=== PATIENT | female | born 1985 | race Caucasian/White ===

== ENCOUNTER 2023-04-16 13:54 | Emergency (ER) | payer OTHER, SELFPAY ==
[2023-04-16 14:03] VITALS: BP 104/65
[2023-04-16 15:09] LABS: D-Dimer 0.84 ug/mlFEU (0.00-0.50)
--- NOTE | 2023-04-16 16:12 | ED.GENMED ---
History of Present Illness
General
Chief Complaint: Breathing Problem
Source: patient
Exam Limitations: none
Time Seen by Provider: 04/16/23 16:06
Nursing documentation reviewed up to this point in time: agreed with
Travel History
Have you had any contact with someone who has COVID-19?: No
Do you have any symptoms of coronavirus? Fever > 100 degrees, chills, cough, shortness of breath, sore throat, loss of taste or smell, muscle aches, or headache?: No
History of Present Illness
History of Present Illness:
37-year-old female, 34 weeks presents from [facility] Garcia[facility] office having had slowly increasing worsening of her intermittent shortness of breath in the past 2 weeks, most recently even at rest not like her typical shortness of breath
when she goes up a flight of stairs 34 weeks . She has had intermittent charley horses in her calves over the past couple of months, denies calf pain at this time. She denies SOB at this time. She denies chest pain.
Past History
Past History
ED Past Medical History: None
ED Past Surgical History: None
Social History
Tobacco: Former smoker
Alcohol: None
Personal:
Living: with family
Employment: Employed
Review of Systems
Review of Systems
Allergies reviewed?: Yes
All Other Systems: ROS reviewed and negative except as documented in HPI and ROS
Constitutional: Denies fever or fatigue
Respiratory: Reports trouble breathing (Shortness of breath at times, mainly with exertion, sometimes at rest)
Cardiac: Denies chest pain, diaphoresis or palpitations
ABD/GI: Denies abdominal pain or nausea
: Denies dysuria or difficulty voiding
Musculoskeletal: Reports no symptoms
Skin: Reports no symptoms
Neurological: Reports no symptoms
Phy Exam
Physical Exam
Physical Exam:
GENERAL: No acute distress. A&Ox3.
CONSTITUTIONAL: Afebrile.
RESPIRATORY: Regular respirations, nonlabored, lungs clear.
CARDIOVASCULAR: Regular rate and rhythm, no murmurs, no rubs.
GI: Soft, consistent with a 34-week , nontender, normal BS
MUSCULOSKELETAL: Moves with ease. Well perfused.
SKIN: Warm, dry, pink
PSYCH: Normal mood and affect. Well kept, interactive and appropriate
NEUROLOGIC: Awake, alert and oriented. No focal neurological deficits
Course
Orders/Labs/Results
Orders:
Orders
04/16/23 14:12
D-Dimer Urgent
Abnormal Lab Results
04/16/23
14:12
D-Dimer 0.84 H ug/mlFEU
(0.00-0.50)
Vital Signs
Initial and Last Documented VS:
Initial Vital Signs
Temp Pulse Resp BP Pulse Ox
98.2 F 89 16 104/65 98
04/16/23 14:03 04/16/23 14:03 04/16/23 14:03 04/16/23 14:03 04/16/23 14:03
Last Documented Vital Signs
Temp Pulse Resp BP Pulse Ox
98.2 F 89 16 104/65 100
04/16/23 14:03 04/16/23 14:03 04/16/23 14:03 04/16/23 14:03 04/16/23 16:32
MDM/Problems Addressed
Differential Diagnosis Includes:
elevated dimer physiologic with , PE
MDM/Problems Addressed:
37-year-old female, 34 weeks presents from [facility] Garcia's office having had slowly increasing worsening of her intermittent shortness of breath in the past 2 weeks, most recently even at rest not like her typical shortness of breath
when she goes up a flight of stairs 34 weeks . She has had intermittent charley horses in her calves over the past couple of months, denies calf pain at this time. She denies SOB at this time. She denies chest pain.
NAD
D dimer 0.84
Discussed risk vs benefit of CT scan for PE study. Dr. Jose cheng texted earlier that she is 'ok with radiation risk.'
Dr. Garcia off duty, forwarded message to Dr. Palomo.
Dr. Naylor got back to me and states she has no problem with the radiation risk
The patient discussed situation with her , she has decided that she does not want the PE study.
Although she has intermittent charley horses, there is no calf pain redness or swelling, no hypoxemia, no tachycardia, no chest pain, no shortness of breath at this time, low suspicion for PE. The mild elevation in the dimer most likely physiologic
with
Reviewed with and patient understands symptoms requiring immediate return.
*Critical Care Note
Total Time (30-74mins, 75-104mins- exclusive of procedures): Not Applicable
ED Attending Note
-
Portions of this chart may have been created with voice recognition software.� Occasional wrong word or��sound alike� substitutions may have occurred due to the inherent limitations of voice recognition software.
Discharge Plan
Departure
Patient Disposition: Home (Routine Discharge)
Date of Disposition: 04/16/23
Time of Disposition: 16:50
Patient with high blood pressure during this ER visit?: No
Condition: Good
Discharge Problem:
Increasing shortness of breath
Prescriptions:
No Action
No Current Medications
0
Referrals:
Samuel Garcia MD [Active] - As needed
NONE,* [Active] -
Activity Restrictions/Additional Instructions:
As we discussed, your D-dimer is mildly elevated, this can occur with .
You have declined the CAT scan for PE or clot in the lung study, so just be aware of the symptoms and return here immediately if they occur: Chest pain, shortness of breath, fast heart rate, feeling faint, or feeling worse in any way.
Also be aware of signs of a deep vein clot in the legs: Increasing pain, swelling, warmth, redness of the leg
If any of these occur, return here immediately
Interventions
Interventions:
*Risk Screen - Suicide Last Done: 04/16/23 16:26
*General Assessment Last Done: 04/16/23 16:26
*Neglect/Abuse Screening Last Done: 04/16/23 16:26
ED- Fall Risk Assessment Last Done: 04/16/23 16:26
*ED COVID-19 Vaccine History Last Done: 04/16/23 16:26
*Nursing Disposition Last Done: 04/16/23 16:51
ED- Cardiac Assessment Last Done: 04/16/23 16:26
ED- Pulmonary Assessment Last Done: 04/16/23 16:26
Discharge Date and Time
Discharge Date/Time: 04/16/23 16:57
[2023-04-16 16:26] VITALS: BMI 26.7
== END 2023-04-16 16:57 | disposition home or self-care (01) ==
LOC: EMR 13:54
PROVIDERS: EMERGENCY PHYSICIAN Emergency Medicine; FAMILY PHYSICIAN Nurse Practitioner
DX: O26.893 Other specified pregnancy related conditions, third trimester (principal); Z3A.34 34 weeks gestation of pregnancy; R06.02 Shortness of breath; M62.831 Muscle spasm of calf; Z87.891 Personal history of nicotine dependence
CPT/HCPCS: 99284; 96372; 85379

== ENCOUNTER 2023-04-22 08:33 | Inpatient (IN) | payer OTHER, SELFPAY ==
[2023-04-22 08:44] VITALS: BP 118/51; BMI 28.4
[2023-04-22 10:35] LABS: % Basophils 0.6 % (0-2); % Eosinophils 0.7 % (0-6); % Immature Granulocytes 3.5 % (0-0.5); % Lymphocytes 20.1 % (20.5-51.1); % Monocytes 5.9 % (1.7-9.3); % Neutrophils 69.2 % (42.2-75.2); Absolute Basophils 0.1 10^3/uL (0-0.2); Absolute Eosinophils 0.1 10^3/uL (0-0.7); Absolute Immature Granulocytes 0.3 10^3/uL (0-0.05); Absolute Lymphocytes 1.8 10^3/uL (1.2-3.4); Absolute Monocytes 0.5 10^3/uL (0.1-0.6); Absolute Neutrophils 6.1 10^3/uL (1.4-6.5); Hematocrit 34.6 % (37.0-47.0); Hemoglobin 11.9 g/dL (12.0-16.0); Mean Corp Hgb Conc. 34.4 g/dL (33.0-37.0); Mean Corpuscular Hgb 32.2 pg (27.0-31.0); Mean Corpuscular Volume 93.5 fL (81.0-99.0); Mean Platelet Volume 9.2 fL (7.4-10.4); Nucleated Red Blood Cells % 0 %; Platelet Count 238 10^3/uL (130-400); Red Cell Dist. Width 13.2 % (11.5-14.5); White Blood Cell Count 8.8 10^3/uL (4.8-10.8)
[2023-04-22] MEDS: CELESTONE SOLUSPAN 2 MG IM (11:12)
[2023-04-22] MEDS: TUMS EX (EXTRA STRENGTH) CHEWABLE 2 TABLET PO (20:26)
[2023-04-23] MEDS: TUMS EX (EXTRA STRENGTH) CHEWABLE 2 TABLET PO ×2 (04:42→09:54)
[2023-04-23] MEDS: CELESTONE SOLUSPAN 2 MG IM (11:04)
== END 2023-04-23 11:25 | disposition home or self-care (01) | DRG 833 ==
LOC: LDRP 08:33
PROVIDERS: ADMITTING PHYSICIAN Obstetrics & Gynecology; CONSULT PHYSICIAN Pediatrics Neonatal-Perinatal Medicine
DX: O46.93 Antepartum hemorrhage, unspecified, third trimester (principal); Z3A.34 34 weeks gestation of pregnancy
CPT/HCPCS: 76816; 85025; 85460; 86850; 86900; 86901; 87070; 93976; G0378

== ENCOUNTER → 2023-06-03 06:51 | Outpatient (REF) | payer OTHER, SELFPAY | LOC: PNTC 06:51 | PROVIDERS: ATTENDING PHYSICIAN Obstetrics & Gynecology | DX: O48.0 Post-term pregnancy (principal) | CPT/HCPCS: 59025 ==

== ENCOUNTER 2023-06-04 17:24 | Observation (INO) | payer OTHER, SELFPAY ==
[2023-06-04 17:40] VITALS: BP 111/69; BMI 29.5
== END 2023-06-04 18:33 | disposition home or self-care (01) ==
LOC: LDRP 17:24
PROVIDERS: ADMITTING PHYSICIAN Obstetrics & Gynecology
DX: O36.8130 Decreased fetal movements, third trimester, not applicable or unspecified (principal); O48.0 Post-term pregnancy; Z3A.40 40 weeks gestation of pregnancy; O09.523 Supervision of elderly multigravida, third trimester
CPT/HCPCS: 76815; G0378

== ENCOUNTER 2023-06-08 10:31 | Inpatient (IN) | payer OTHER, SELFPAY ==
[2023-06-08 10:22] VITALS: BP 124/67; BMI 28.4
[2023-06-08] MEDS: LR 1000 IV ×2 (11:22→18:19)
[2023-06-08 11:32] LABS: % Basophils 0.4 % (0-2); % Eosinophils 0.8 % (0-6); % Immature Granulocytes 2.7 % (0-0.5); % Lymphocytes 20.7 % (20.5-51.1); % Monocytes 8.4 % (1.7-9.3); Absolute Eosinophils 0.1 10^3/uL (0-0.7); Absolute Immature Granulocytes 0.2 10^3/uL (0-0.05); Absolute Lymphocytes 1.9 10^3/uL (1.2-3.4); Absolute Monocytes 0.8 10^3/uL (0.1-0.6); Hematocrit 35.4 % (37.0-47.0); Hemoglobin 12.6 g/dL (12.0-16.0); Mean Corp Hgb Conc. 35.6 g/dL (33.0-37.0); Mean Corpuscular Hgb 33.3 pg (27.0-31.0); Mean Corpuscular Volume 93.7 fL (81.0-99.0); Mean Platelet Volume 9.2 fL (7.4-10.4); Nucleated Red Blood Cells % 0 %; Platelet Count 233 10^3/uL (130-400); Red Blood Cell Count 3.78 10^6/uL (4.20-5.40); Red Cell Dist. Width 13.4 % (11.5-14.5); White Blood Cell Count 8.9 10^3/uL (4.8-10.8)
[2023-06-08] MEDS: CYTOTEC 25 MICROGRAM VAG (13:16)
[2023-06-08] MEDS: CYTOTEC 50 MICROGRAM PO ×2 (16:08→20:08)
[2023-06-09] MEDS: PHENERGAN 50.5 MG IV (02:21)
[2023-06-09] MEDS: MORPHINE SULFATE 2 MG IV ×2 (02:21→23:12)
[2023-06-09] MEDS: CYTOTEC PO ×3 (04:11→10:43)
[2023-06-09] MEDS: PITOCIN 30 UNITS/NSS 500 ML IV (04:21)
[2023-06-09] MEDS: PHENERGAN 50.25 MG IV (23:11)
[2023-06-09] MEDS: LR 1000 IV ×2 (23:12→23:55)
[2023-06-10] MEDS: MORPHINE SULFATE 2 MG IV (07:11)
[2023-06-10] MEDS: PHENERGAN 50.25 MG IV (07:25)
[2023-06-10] MEDS: SUBLIMAZE 100 MCG EPIDURAL (09:41)
[2023-06-10] MEDS: FENTANYL/BUPIVACAINE 100 EPIDURAL (09:41)
[2023-06-10] MEDS: LR 1000 IV (13:23)
[2023-06-10] MEDS: ZITHROMAX INFUSION 250 IV (15:02)
[2023-06-10] MEDS: ANCEF 10 IV (15:02)
[2023-06-10] MEDS: TYLENOL 1000 MG PO (15:02)
[2023-06-10] MEDS: BICITRA 30 ML PO (15:02)
[2023-06-10 15:45] LABS: Cord ABG Comment CORD BLOOD
[2023-06-10 15:47] LABS: B.E. Cord ABG -1.5 mMOL/L; HCO3 Cord ABG 22.9 mmol/L; O2 Saturation % Cord ABG 67.6 %; PCO2 Cord ABG 37 mmHg; PO2 Cord ABG 33 mmHg
[2023-06-10 15:49] LABS: B.E. Cord ABG -1.5 mMOL/L; HCO3 Cord ABG 22.9 mmol/L; O2 Saturation % Cord ABG 67.9 %; PCO2 Cord ABG 37 mmHg; PO2 Cord ABG 34 mmHg
[2023-06-10] MEDS: TORADOL 15 MG IV ×2 (17:14→23:25)
[2023-06-10] MEDS: DILAUDID 1 MG IV (21:46)
[2023-06-11 05:05] LABS: Hematocrit 31.3 % (37.0-47.0); Hemoglobin 10.9 g/dL (12.0-16.0); Mean Corp Hgb Conc. 34.8 g/dL (33.0-37.0); Mean Corpuscular Hgb 33.1 pg (27.0-31.0); Mean Corpuscular Volume 95.1 fL (81.0-99.0); Mean Platelet Volume 9.3 fL (7.4-10.4); Platelet Count 225 10^3/uL (130-400); Red Blood Cell Count 3.29 10^6/uL (4.20-5.40); Red Cell Dist. Width 13.1 % (11.5-14.5); White Blood Cell Count 16.2 10^3/uL (4.8-10.8)
[2023-06-11] MEDS: TORADOL 15 MG IV ×2 (05:06→10:56)
[2023-06-11] MEDS: TYLENOL 650 MG PO ×4 (10:18→23:30)
[2023-06-11 11:55] LABS: Syphilis/T. pallidum Ab Reflex Negative (Negative)
--- NOTE | 2023-06-11 13:26 | W.PN.ANS.POP ---
Anesthesia Post Operative
- Anesthesia Post Op Note
Vital Signs Stable-See Nursing Note: Yes
Airway Patent: Yes
Adequate Pain Control: Yes
Change in Mental Status: No
Current Postoperative Nausea & Vomiting: No
Anesthesia Complications: No
General Anesthetic Recall: No
Unplanned Admission: No
Post Op Hydration Adequate: Yes
[2023-06-11] MEDS: TORADOL IV (17:48)
[2023-06-11] MEDS: SENOKOT-S 1 TABLET PO (17:52)
[2023-06-11] MEDS: MYLICON 80 MG PO (17:53)
[2023-06-11] MEDS: MOTRIN 600 MG PO ×2 (17:54→23:30)
[2023-06-12] MEDS: MOTRIN 600 MG PO ×3 (05:32→17:20)
[2023-06-12] MEDS: TYLENOL 650 MG PO ×3 (05:32→17:20)
[2023-06-12] MEDS: SENOKOT-S 1 TABLET PO (11:20)
[2023-06-13] MEDS: MOTRIN 600 MG PO ×2 (00:05→06:24)
[2023-06-13] MEDS: TYLENOL 650 MG PO ×3 (00:06→10:47)
[2023-06-13] MEDS: MYLICON 80 MG PO (00:25)
--- NOTE | 2023-06-13 08:57 | W.DS.TRANS ---
DC Summary - [employer]
-
Discharge Instructions:
Discharge Diagnosis/Procedures delivered by csection
Diet Regular
Activity No strenuous activity
Driving Restrictions No driving for 2 weeks
Bathing Restrictions OK to Shower
Instructions:
Stand-Alone Forms: LDRP Delivery
Changes to Home Medications: No
Discharge Medications:
DC Medications w/original date entered in [facility]
vitamin-ferrous fumarate 28 mg iron-folic acid 800 mcg tablet ( Tablet) 1 tab PO DAILY Supplement 04/22/23
acetaminophen 325 mg tablet 650 mg (2 x 325 mg) PO Q4HPRN PRN mild pain #0 tabs 06/12/23
ibuprofen 600 mg tablet 600 mg PO Q6HPRN PRN cramps #0 tabs 06/12/23
Home Medication Changes
Pending Results: Yes
Additional Pending Results:
placental path
Total time spent discharging patient (in min): 30
== END 2023-06-13 11:29 | disposition home or self-care (01) | DRG 787 ==
LOC: LDRP 10:31
PROVIDERS: Obstetrics & Gynecology; ADMITTING PHYSICIAN Obstetrics & Gynecology
PROC: 3E0DXGC Introduction of Other Therapeutic Substance into Mouth and Pharynx, External Approach (ICD-10-PCS; 2023-06-08)
PROC: 3E0P7VZ Introduction of Hormone into Female Reproductive, Via Natural or Artificial Opening (ICD-10-PCS; 2023-06-08)
PROC: 3E033VJ Introduction of Other Hormone into Peripheral Vein, Percutaneous Approach (ICD-10-PCS; 2023-06-08)
PROC: 10D00Z1 Extraction of Products of Conception, Low, Open Approach (ICD-10-PCS; 2023-06-10)
PROC: 0U7C7ZZ Dilation of Cervix, Via Natural or Artificial Opening (ICD-10-PCS; 2023-06-10)
DX: O48.0 Post-term pregnancy (principal); O41.03X0 Oligohydramnios, third trimester, not applicable or unspecified; Z3A.41 41 weeks gestation of pregnancy; Z37.0 Single live birth; F10.11 Alcohol abuse, in remission; O99.344 Other mental disorders complicating childbirth; F41.9 Anxiety disorder, unspecified; F32.A Depression, unspecified; O76 Abnormality in fetal heart rate and rhythm complicating labor and delivery; O62.2 Other uterine inertia
CPT/HCPCS: 88307; 59025; 76815; 76820; 82803; 85025; 85027; 86780; 86850; 86900; 86901